=== PATIENT | male | born 1965 | race Caucasian/White ===

== ENCOUNTER 2017-08-28 21:52 | Emergency (ER) | payer SELFPAY ==
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
[2017-08-28] MEDS ORDERED: Ibuprofen 800 MG TAB ONE (22:50)
== END 2017-08-28 22:50 ==
LOC: ERS 21:52
DX: S39.012A Strain of muscle, fascia and tendon of lower back, initial encounter (principal); F10.129 Alcohol abuse with intoxication, unspecified; I10 Essential (primary) hypertension; F17.210 Nicotine dependence, cigarettes, uncomplicated; V89.2XXA Person injured in unspecified motor-vehicle accident, traffic, initial encounter
CPT/HCPCS: 72100

== ENCOUNTER 2018-05-16 16:38 | Inpatient (IN) | payer SELFPAY ==
[~2018-05-16 16:38] MED LIST: Dexamethasone 20 MG/5 ML VIAL ONE; Heparin 10,000 UNITS/ 10 ML VIAL ONE; Ketorolac Tromethamine 30 MG/ML VIAL ONE; Lidocaine 1% PF 5 ML VIAL ONE; Ondansetron PF 4 MG/2 ML Vial ONE; PHENYLEPHRINE-NS 100 MCG/ML 10 ML SYRINGE ONE; PROPOFOL 200 MG/20 ML VIAL ONE; Succinylcholine Chloride 20 MG/ML 10 ml SYRINGE FS ONE; ePHEDrine/0.9% NaCl/PF SYRINGE 50 mg/10 ml ONE
[2018-05-16] MEDS ORDERED: Morphine 4 MG/ML VIAL ONE (16:48)
[2018-05-16] MEDS ORDERED: CEFAZOLIN 2 GM/50 ML BAG ONE ×2 (17:22→19:20)
[2018-05-16] MEDS ORDERED: Adacel (T-DAP) 0.5 ML SYRINGE ONE (17:22)
[2018-05-16] MEDS ORDERED: HYDROmorphone 0.5 MG/0.5 ML SYRINGE ONE (17:31)
--- NOTE | 2018-05-16 19:12 | RAD ---
RADIOGRAPH LEFT HAND 3 VIEW: 05/16/18 at 4:50 p.m. HISTORY: 52-year-old male with traumatic injury to the left hand. COMPARISON: None. FINDINGS: Amputation at base of second distal phalanx. Amputation at mid diaphysis of third distal phalanx, wit h the distal fragment (consisting of the tuft) and the overlying soft tissues still partially freezer tunnel operator d to the proximal fragment, but displaced, rotated and angulated. The distal tuft has minimally displ aced comminuted fracture components. IMPRESSION: Acute, traumatic, amputations at second and third distal phalanges. POS: [facility]
[2018-05-16] MEDS ORDERED: Gentamicin 80 MG/2 ML VIAL ONE (19:16)
[2018-05-16] MEDS ORDERED: Gentamicin Sulfate 80 MG in Premix Bag 1 BAG IVPB SCH (19:30)
[2018-05-16] MEDS ORDERED: Penicillin G Potassium 3 MILL.UNITS in Sodium Chloride 0.9% 100 ML IVPB SCH (19:45)
[2018-05-16] MEDS ORDERED: Fentanyl 100 MCG/2 ML VIAL ONE ×2 (21:59→22:06)
[2018-05-16] MEDS ORDERED: Bupivacaine PF 0.5% 30 ML VIAL ONE (22:07)
[2018-05-16] MEDS ORDERED: Bacitracin Zinc Ointment 30 gm TUBE ONE (22:07)
[2018-05-16] MEDS ORDERED: Sodium Chloride 0.9% 50 ML ONE (22:07)
[2018-05-16] MEDS ORDERED: Bisacodyl 10 MG SUPP PR PRN (22:19)
[2018-05-16] MEDS ORDERED: Ondansetron PF 4 MG/2 ML Vial IV PRN (22:19)
[2018-05-16] MEDS ORDERED: HYDROcodone/Acetaminophen 10/325 mg Tablet PO PRN (22:19)
[2018-05-16] MEDS ORDERED: Morphine 4 MG/ML VIAL SLOW IVP PRN (22:19)
[2018-05-16] MEDS ORDERED: traMADol HCl 50 MG TAB PO PRN (22:19)
[2018-05-16] MEDS ORDERED: Acetaminophen 325 MG TAB PO PRN (22:19)
[2018-05-16] MEDS ORDERED: Fentanyl 100 MCG/2 ML VIAL SLOW IVP PRN (22:19)
[2018-05-16] MEDS ORDERED: HYDROcodone/Acetaminophen 5/325 mg Tablet PO PRN (22:19)
[2018-05-16] MEDS ORDERED: Milk Of Magnesia 30 ML UDCUP PO PRN (22:19)
[2018-05-16] MEDS ORDERED: Meperidine HCl/PF 25 MG/ML VIAL IM PRN (22:27)
[2018-05-16] MEDS ORDERED: TETANUS AND DIPHTHERIA TOX/PF 0.5 ML DISP.SYRIN IM SCH (22:30)
[2018-05-16] MEDS ORDERED: Communication Order-Pharmacy FS SCH (22:30)
[2018-05-16] MEDS ORDERED: Betamet Acet/Betamet Na Ph 30 MG/5 ML VIAL ONE (23:14)
[2018-05-16] MEDS ORDERED: Heparin 10,000 UNITS/1 ML VIAL ONE (23:14)
[2018-05-16] MEDS ORDERED: Thrombin 5000 UNITS/5 ML VIAL ONE (23:14)
[2018-05-16] MEDS ORDERED: Hetastarch 6% 500 ML 500 ML ONE (23:14)
[2018-05-16] MEDS ORDERED: Lidocaine 2% PF 5 ML VIAL ONE (23:14)
[2018-05-17] MEDS ORDERED: Albumin 5% 500 ML ONE (00:53)
[2018-05-17] MEDS ORDERED: Ketorolac Tromethamine 30 MG/ML VIAL ONE (02:25)
[2018-05-17] MEDS ORDERED: Fentanyl 100 MCG/2 ML VIAL ONE (02:25)
[2018-05-17] MEDS ORDERED: PACU-Morphine 4MG/ML VIAL SLOW IVP PRN (02:36)
[2018-05-17] MEDS ORDERED: Promethazine HCl 25 MG/ML VIAL IM PRN (02:36)
[2018-05-17] MEDS ORDERED: Promethazine HCl 25 MG/ML VIAL SLOW IVP PRN (02:36)
[2018-05-17] MEDS ORDERED: Ondansetron HCl/PF 4 MG/2 ML Vial IVP PRN (02:36)
[2018-05-17] MEDS ORDERED: HYDROmorphone 2 MG/ML VIAL SLOW IVP PRN (02:36)
[2018-05-17] MEDS ORDERED: HYDROmorphone 2 MG/ML VIAL ONE (03:28)
[2018-05-17] MEDS: Ketorolac Tromethamine 30 MG/ML VIAL IVP SCH ×6 (04:26→23:54)
[2018-05-17] MEDS: Sodium Chloride 0.9% 10 ML ONE ×2 (05:05→06:46)
[2018-05-17 05:27] VITALS: BMI 24.3
[2018-05-17] MEDS ORDERED: Acetaminophen 325 MG TAB PO PRN (06:15)
[2018-05-17] MEDS ORDERED: Communication Order-Pharmacy FS SCH (06:15)
[2018-05-17] MEDS ORDERED: Bisacodyl 10 MG SUPP PR PRN (06:15)
[2018-05-17] MEDS ORDERED: Fentanyl 100 MCG/2 ML VIAL SLOW IVP PRN (06:16)
[2018-05-17] MEDS ORDERED: Ondansetron PF 4 MG/2 ML Vial IV PRN (06:17)
[2018-05-17] MEDS ORDERED: Milk Of Magnesia 30 ML UDCUP PO PRN (06:17)
[2018-05-17] MEDS ORDERED: traMADol HCl 50 MG TAB PO PRN (06:17)
[2018-05-17] MEDS ORDERED: Meperidine HCl/PF 25 MG/ML VIAL IM PRN (06:18)
[2018-05-17] MEDS: HYDROcodone/Acetaminophen 5/325 mg Tablet PO PRN (06:53)
[2018-05-17] MEDS ORDERED: Vancomycin HCl 1 GM in Premix Bag 1 BAG IVPB SCH (08:00)
[2018-05-17] MEDS: Morphine 4 MG/ML VIAL SLOW IVP PRN ×2 (08:37→14:22)
[2018-05-17] MEDS ORDERED: Aspirin 81 mg Enteric Coated Tablet PO SCH (09:00)
[2018-05-17] MEDS: Aspirin 81 mg Enteric Coated Tablet PO SCH ×2 (09:50→20:41)
--- NOTE | 2018-05-17 23:49 | RAD ---
LEFT MIDDLE FINGER INTRAOPERATIVE FLUOROSCOPY TWO VIEWS: History: Finger fracture. FINDINGS: Intraoperative fluoroscopy is provided for internal fixation as performed by Dr. Dennis. Spot fluor oscopic images shows wire transfixing the distal phalanx fracture in anatomic alignment. Fluoro time: 51 seconds. POS: [facility]
[2018-05-17] MEDS ORDERED: Ketorolac Tromethamine 30 MG/ML VIAL IVP PRN ×2 (23:59)
[2018-05-18] MEDS ORDERED: Sodium Chloride 0.9% 10 ML ONE (08:22)
[2018-05-18] MEDS: Morphine 4 MG/ML VIAL SLOW IVP PRN (08:26)
[2018-05-18] MEDS: Aspirin 81 mg Enteric Coated Tablet PO SCH (09:49)
[2018-05-18 11:41] VITALS: BP 144/71; TEMP 98.7
[2018-05-18] MEDS: HYDROcodone/Acetaminophen 5/325 mg Tablet PO PRN (14:17)
--- NOTE | 2018-05-18 15:19 | OP ---
DATE OF PROCEDURE: 05/17/2018 PREOPERATIVE DIAGNOSES: 1. Left index finger complete amputation with the part just distal to the distal interphalangeal joint and brought in a standard bag configuration. 2. Left middle finger near-complete amputation with intact skin bruise, but neurovascular bundle still intact and pale. PROCEDURES PERFORMED: 1. Debridement of open fracture. 2. Debridement of material associated with open fracture. 3. Open fracture of distal phalanx open treatment. 4. Wound coverage with a full-thickness skin graft harvested from the amputated digit, 2 x 1.5 cm on the left middle finger. a. Nailbed repair. b. Debridement of material associated with infection. c. Open treatment of open distal phalanx fracture. d. Neuroplasty with microscope of digital nerve. e. Full-thickness skin graft. f. C-arm supervision. TOURNIQUET TIME: None. ESTIMATED BLOOD LOSS: 50 mL. FINDINGS: Unable to restore circulation despite anastomosis of left long finger. INDICATION: The patient had an axe held in his dominant hand. When he began to cut some wood, he was holding it in his nondominant left hand, and instead of cutting the wood, he contacted these 2 fingers. DESCRIPTION OF PROCEDURE: After successful general LMA technique, the limb was prepped and draped. We then initially inspected the skin bruise portion. I saw now that it looked like a lesion, whatsoever. We then prepared for debridement by first debriding the chondral surfaces of both the long finger distal phalanx fracture as well as the remnant of the distal phalanx at the base of the index finger. The patient had soft tissue debridement as well with tenotomy scissors, excision of technique. Then, we irrigated with 3 L normal saline and Pulsavac pressure at each finger and at this point, there were no complications. Once we had done this at the index finger, we had a wound that was 2 x 1.5 cm and would need a full-thickness skin graft. We had soaked the amputated part and then had all bone removed, it was made as thin as if it had been meshed, and then sutured with hemostasis onto the index finger and had been debrided the tip. Then, I will secure with combination of Bolster, normal saline soaked mineral oil as well as Bacitracin and Adaptic against the graft itself. It had excellent capillary refill. We then turned our attention to the long finger where we inspected the amputated part and brought the microscope into the field, performed curettage, debridement, excision of technique as well and then finished the irrigation with a Pulsavac. Same as previous finger. No instability. Thus, we then removed all debris, did a 2 pin 0.35 K-wire fixation given excellent coaptation of the edges without angulation and then began with a combination of microscope and loupes to dissect the neurovascular bundle. Once this was complete, we began a series of 10-0 sutures to attempt reanastomosis. It was hooked up well, inspected, found to have no flow. We then realized that the amputated part although still intact, did not have circulation whatsoever and would not survive, so we removed it. I explained this to the patient in recovery room. Then, irrigated this finger. It had the total exsanguination of the limb during this procedure portion and then felt that the patient was stable enough for repair. We then harvested the full-thickness skin graft from the donor digit and secured it with a combination of 5-0 running Monocryl and Bolster, Bacitracin, Adaptic over the wound, and for at least 8 weeks total time. We then closed all his wounds, finished the full-thickness skin graft donated from the cadaver part, and the patient was prepared for discharge with bulky dressing and splint in safe position. We placed him in a short-arm splint. Job ID: [id number]
== END 2018-05-18 14:27 | disposition home or self-care (01) | DRG 906 ==
LOC: ERS 16:38 → SDC/OP 22:38 → 3SE 05-17 03:33
PROVIDERS: ADMIT Orthopaedic Surgery Hand Surgery; ATTEND Orthopaedic Surgery Hand Surgery
PROC: 0X6R0Z0 Detachment at Left Middle Finger, Complete, Open Approach (ICD-10-PCS; principal; 2018-05-17)
PROC: 0PBV0ZZ Excision of Left Finger Phalanx, Open Approach (ICD-10-PCS; 2018-05-17)
PROC: 0HQQXZZ Repair Finger Nail, External Approach (ICD-10-PCS; 2018-05-17)
PROC: 0HRGX74 Replacement of Left Hand Skin with Autologous Tissue Substitute, Partial Thickness, External Approach (ICD-10-PCS; 2018-05-17)
PROC: 0PSV04Z Reposition Left Finger Phalanx with Internal Fixation Device, Open Approach (ICD-10-PCS; 2018-05-17)
DX: S68.121A Partial traumatic metacarpophalangeal amputation of left index finger, initial encounter (principal); S68.123A Partial traumatic metacarpophalangeal amputation of left middle finger, initial encounter; W27.0XXA Contact with workbench tool, initial encounter; Y93.89 Activity, other specified; I10 Essential (primary) hypertension; F17.210 Nicotine dependence, cigarettes, uncomplicated
CPT/HCPCS: 76000; 90471; 90715; 96365; 96367; 96375; 96376; G0390; J0702; J1100; J1170; J1580; J1644; J1885; J2001; J2175; J2270; J2405; J2540; J2704; J3010; J3370; J3490; J7050; P9045; S0020

== ENCOUNTER 2019-08-10 22:20 | Emergency (ER) | payer OTHER | END 2019-08-10 23:20 | LOC: ERS 22:20 | DX: S00.81XA Abrasion of other part of head, initial encounter (principal); V89.2XXA Person injured in unspecified motor-vehicle accident, traffic, initial encounter | CPT/HCPCS: 99283 ==